=== PATIENT | male | born 1960 | race Caucasian/White ===

== ENCOUNTER 2016-10-04 14:21 | Emergency (ER) | payer MEDICAID ==
[~2016-10-04] VITALS: Ht 165.1 cm; Wt 62.6 kg
[2016-10-04 14:53] VITALS: BP 113/74
[2016-10-04] MEDS ORDERED: GLUCOPHAGE1000 MG PO (14:59)
[2016-10-04] MEDS ORDERED: ELAVIL25 MG PO (14:59)
[2016-10-04] MEDS ORDERED: NOVOLOG100 U/ML SUBQ (14:59)
[2016-10-04] MEDS ORDERED: NEURONTIN300 MG PO (14:59)
[2016-10-04] MEDS ORDERED: ASPIRIN81 M1 PO (14:59)
[2016-10-04] MEDS ORDERED: NAPROSYN500 MG PO (14:59)
[2016-10-04] MEDS ORDERED: NACL 0.9% 1,000 ML IV SCH (15:03)
--- NOTE | 2016-10-04 15:03 | NUR ---
Patient ambulated to bed 03.
[2016-10-04] MEDS ORDERED: NACL 0.9% 1,000 ML IV ONE ×2 (15:04→16:50)
[2016-10-04] MEDS ORDERED: INSULIN HUMAN REGULAR 100 UNITS/ML 10 ML VIAL IVP ONE (15:15)
--- NOTE | 2016-10-04 15:20 | NUR ---
PATIENT PRESENTS TO ED WITH FORGETFUL,URINE INCONTINENCE . PT STATES URGENCY . DENIES N/V/D; SKIN IS PINK/WARM/DRY; AAOX4 WITH EVEN AND STEADY GAIT; LUNGS CLEAR BL; HR EVEN AND REGULAR; PT DENIES ANY FEVER, CP, SOB, OR COUGH AT THIS TIME; PATIENT STATES PAIN OF 0/10 AT THIS TIME; VSS; PATIENT POSITIONED FOR COMFORT; HOB ELEVATED; BEDRAILS UP X2; BED DOWN. ER MD MADE AWARE OF PT STATUS.
--- NOTE | 2016-10-04 15:52 | NUR ---
Patient back from CT via wheelchair per tech.
--- NOTE | 2016-10-04 15:55 | NUR ---
PT DENIES POMPA, NO CP, DENIES DIZZINESS---PT IN GOOD SPIRITS, SHOWING ME PICTURES OF HIS DOG, THANKFUL FOR NOT BEING JUDGEMENTAL OF HIS DRUG USE STATED BY PT.
--- NOTE | 2016-10-04 16:15 | NUR ---
ENCOURAGED TO PROVIDE URINE SAMPLE ----WILL INITIATE 3RD LITER NS
--- NOTE | 2016-10-04 17:20 | NUR ---
have pt up in restroom, pt does not think he can void but instructed to attempt.
--- NOTE | 2016-10-04 17:26 | NUR ---
lab collected urine
--- NOTE | 2016-10-04 18:09 | NUR ---
Patient discharged with v/s stable. Written and verbal after care instructions given and explained. Patient alert, oriented and verbalized understanding of instructions. Ambulatory with steady gait. All questions addressed prior to discharge. ID band removed. Patient advised to follow up with PMD. Rx of gabapentin/metformin/novolin given. Patient educated on indication of medication including possible reaction and side effects. Opportunity to ask questions provided and answered.
[2016-10-04 18:10] VITALS: BP 116/72
== END 2016-10-04 18:09 | disposition home or self-care (01) ==
LOC: MED 14:30
DX: E11.9 Type 2 diabetes mellitus without complications (principal); G62.9 Polyneuropathy, unspecified; Z87.891 Personal history of nicotine dependence; Z88.0 Allergy status to penicillin; Z79.4 Long term (current) use of insulin; Z79.82 Long term (current) use of aspirin; Z79.899 Other long term (current) drug therapy
CPT/HCPCS: 36415; 70450; 80053; 80305; 81001; 82140; 82150; 82948; 83690; 85025; 93005; 96361; 96374; 99285; G0482; J1815; J7030